=== PATIENT | male | born 2005 | race Caucasian/White ===

== ENCOUNTER 2023-03-11 07:22 | Day surgery (SDC) | payer OTHER ==
[2023-03-10 12:02] VITALS: BMI 30.4
[2023-03-11] MEDS ORDERED: Oxymetazoline HCl 0.05% (30 ML BOT) ONE (07:57)
[2023-03-11] MEDS ORDERED: Lidocaine 1% (PF) 30 ML VIAL ONE ×2 (09:14→09:17)
[2023-03-11] MEDS ORDERED: Bacitracin Zinc Ointment 30 gm TUBE ONE (09:14)
[2023-03-11] MEDS ORDERED: EPINEPHrine 1 MG/ML VIAL ONE (09:14)
[2023-03-11] MEDS ORDERED: Dexamethasone 20 MG/5 ML VIAL ONE ×2 (09:20→09:34)
[2023-03-11] MEDS ORDERED: fentaNYL PF 100 MCG/2 ML SYRINGE ONE (09:20)
[2023-03-11] MEDS ORDERED: PROPOFOL 20 ML ONE (09:20)
[2023-03-11] MEDS ORDERED: Ondansetron PF 4 MG/2 ML Vial ONE ×2 (09:20→09:34)
[2023-03-11] MEDS ORDERED: Rocuronium Bromide 10 MG/ML (10ML VIAL) ONE (09:34)
[2023-03-11] MEDS ORDERED: Lidocaine 1% PF 5 ML VIAL ONE (09:34)
[2023-03-11] MEDS ORDERED: PROPOFOL 200 MG/20 ML VIAL ONE (09:34)
[2023-03-11] MEDS ORDERED: SUGAMMADEX SODIUM 200 MG/2 ML VIAL ONE (09:49)
[2023-03-11] MEDS ORDERED: diphenhydrAMINE 50 MG/ML VIAL ONE (11:08)
== END 2023-03-11 13:00 | disposition home or self-care (01) ==
LOC: SDC 07:22
PROVIDERS: ATTEND Otolaryngology Plastic Surgery within the Head & Neck
PROC: 09BM0ZZ Excision of Nasal Septum, Open Approach (ICD-10-PCS; principal; 2023-03-11)
PROC: 09TL0ZZ Resection of Nasal Turbinate, Open Approach (ICD-10-PCS; principal; 2023-03-11)
DX: J34.2 Deviated nasal septum (principal); J34.3 Hypertrophy of nasal turbinates; J34.89 Other specified disorders of nose and nasal sinuses; J01.90 Acute sinusitis, unspecified; J30.9 Allergic rhinitis, unspecified; Z90.49 Acquired absence of other specified parts of digestive tract
CPT/HCPCS: J0171; J1100; J1200; J2001; J2405; J2704